=== PATIENT | female | born 1975 | race Hispanic/Latino ===

== ENCOUNTER 2018-09-01 11:22 | Emergency (ER) | payer OTHER ==
--- NOTE | 2018-09-01 12:03 | RAD REPORT ---
EXAM DESCRIPTION: RAD - Chest Single View - 09/01/2018 11:53 am CLINICAL HISTORY: Congestion;Cough Chest pain. COMPARISON: No comparisons FINDINGS: Portable technique limits examination quality. The lungs are grossly clear. The heart is normal in size. No displaced fractures. IMPRESSION: No acute intrathoracic process suspected.
--- NOTE | 2018-09-01 12:32 | EDPHYS ---
Physician Documentation [facility] Name: Marcia Storey Age: 43 yrs Sex: Female : 1975 Arrival Date: 09/01/2018 Time: 11:25 Bed 11 Private MD: ED Physician Waldo Rodriguez HPI: 09/01 12:29 This 43 yrs old Female presents to ER via Ambulatory with complaints of Cough, jr8 Congestion. 12:29 The patient or guardian reports cough, that is intermittent, described as mild, with jr8 productive sputum, that is yellow. Onset: The symptoms/episode began/occurred acutely, 2 day(s) ago. Severity of symptoms: At their worst the symptoms were mild, in the emergency department the symptoms are unchanged. Modifying factors: The symptoms are alleviated by nothing, the symptoms are aggravated by nothing. Associated signs and symptoms: Pertinent positives: rhinorrhea. The patient has not experienced similar symptoms in the past. The patient has not recently seen a physician. OPHTHALMIC ASST: 11:39 LMP N/A - control method iw Historical: - Allergies: 11:39 No Known Allergies; iw - Home Meds: 11:39 None [Active]; iw - PMHx: 11:39 None; iw - PSHx: 11:39 None; iw - Immunization history:: Adult Immunizations not up to date. - Social history:: Smoking status: Patient uses tobacco products, denies chronic smoking, but will smoke occasionally. - Ebola Screening: : Patient negative for fever greater than or equal to 101.5 degrees Fahrenheit, and additional compatible Ebola Virus Disease symptoms Patient denies exposure to infectious person Patient denies travel to an Ebola-affected area in the 21 days before illness onset No symptoms or risks identified at this time. ROS: 12:29 Eyes: Negative for injury, pain, redness, and discharge, Neck: Negative for injury, jr8 pain, and swelling, Cardiovascular: Negative for chest pain, palpitations, and edema, Abdomen/GI: Negative for abdominal pain, nausea, vomiting, diarrhea, and constipation, Back: Negative for injury and pain, MS/Extremity: Negative for injury and deformity, Skin: Negative for injury, rash, and discoloration, Neuro: Negative for headache, weakness, numbness, tingling, and seizure. 12:29 ENT: Positive for rhinorrhea, sinus congestion, sore throat, Negative for drainage from ear(s), ear pain. 12:29 Respiratory: Positive for cough, Negative for shortness of breath, sputum production, wheezing. Exam: 12:29 Eyes: Pupils equal round and reactive to light, extra-ocular motions intact. Lids and jr8 lashes normal. Conjunctiva and sclera are non-icteric and not injected. Cornea within normal limits. Periorbital areas with no swelling, redness, or edema. ENT: Nares patent. Clear rhinorrhea. Mild bilateral turbinate swelling, no septal abnormalities noted. Tympanic membranes are normal and external auditory canals are clear. Oropharynx with no redness, swelling, or masses, exudates, or evidence of obstruction, uvula midline. Mucous membranes moist. Neck: Trachea midline, no thyromegaly or masses palpated, and no cervical lymphadenopathy. Supple, full range of motion without nuchal rigidity, or vertebral point tenderness. No Meningismus. Cardiovascular: Regular rate and rhythm with a normal S1 and S2. No gallops, murmurs, or rubs. Normal PMI, no JVD. No pulse deficits. Respiratory: Lungs have equal breath sounds bilaterally, clear to auscultation and percussion. No rales, rhonchi or wheezes noted. No increased work of breathing, no retractions or nasal flaring. Abdomen/GI: Soft, non-tender, with normal bowel sounds. No distension or tympany. No guarding or rebound. No evidence of tenderness throughout. Back: No spinal tenderness. No costovertebral tenderness. Full range of motion. Skin: Warm, dry with normal turgor. Normal color with no rashes, no lesions, and no evidence of cellulitis. MS/ Extremity: Pulses equal, no cyanosis. Neurovascular intact. Full, normal range of motion. Neuro: Awake and alert, GCS 15, oriented to person, place, time, and situation. Cranial nerves II-XII grossly intact. Motor strength 5/5 in all extremities. Sensory grossly intact. Cerebellar exam normal. Normal gait. Vital Signs: 11:39 BP 122 / 87; Pulse 86; Resp 16; Temp 97.6(TE); Pulse Ox 95% on R/A; Weight 98.43 kg; iw Height 5 ft. 5 in. (165.10 cm); Pain 4/10; 11:39 Body Mass Index 36.11 (98.43 kg, 165.10 cm) iw MDM: 12:03 Patient medically screened. jr8 12:29 Data reviewed: vital signs, nurses notes, lab test result(s), radiologic studies, plain jr8 films, and as a result, I will discharge patient. Data interpreted: Pulse oximetry: on room air is 95 %. Interpretation: acceptable. Counseling: I had a detailed discussion with the patient and/or guardian regarding: the historical points, exam findings, and any diagnostic results supporting the discharge/admit diagnosis, lab results, radiology results, the need for outpatient follow up, a family practitioner, to return to the emergency department if symptoms worsen or persist or if there are any questions or concerns that arise at home. 09/01 11:41 Order name: Flu; Complete Time: 12:26 iw 09/01 11:41 Order name: CXR XRAY; Complete Time: 12:13 iw Administered Medications: No medications were administered Disposition: 09/02 07:06 Co-signature as Attending Physician, Waldo Rodriguez MD I agree with the assessment and rei plan of care. Disposition: 09/01/18 12:32 Discharged to Home. Impression: Acute upper respiratory infection, unspecified. - Condition is Stable. - Discharge Instructions: Upper Respiratory Infection, Adult. - Prescriptions for Prednisone 20 mg Oral Tablet - take 1 tablet by ORAL route once daily for 5 days; 5 tablet. Guaifenesin AC 10- 100 mg/5 mL Oral Liquid - take 10 milliliter by ORAL route every 4 hours As needed; 240 milliliter. Tessalon Perles 100 mg Oral Capsule - take 1 capsule by ORAL route every 8 hours As needed; 15 capsule. - Medication Reconciliation Form, Thank You Letter, Antibiotic Education, Prescription Opioid Use form. - Follow up: Private Physician; When: 5 - 6 days; Reason: Recheck today's complaints, Continuance of care, Re-evaluation by your physician. - Problem is new. - Symptoms have improved. Signatures: Dispatcher [employer] Waldo De MD MD cha Williams, Irene RN RN iw Teo Tomas PA PA jr8 Corrections: (The following items were deleted from the chart) 09/01 12:44 12:32 09/01/2018 12:32 Discharged to Home. Impression: Acute upper respiratory iw infection, unspecified. Condition is Stable. Forms are Medication Reconciliation Form, Thank You Letter, Antibiotic Education, Prescription Opioid Use. Follow up: Private Physician; When: 5 - 6 days; Reason: Recheck today's complaints, Continuance of care, Re-evaluation by your physician. Problem is new. Symptoms have improved. jr8
--- NOTE | 2018-09-01 12:32 | ER ---
Nurse's Notes [facility] Name: Marcia Storey Age: 43 yrs Sex: Female : 1975 Arrival Date: 09/01/2018 Time: 11:25 Bed 11 Private MD: Diagnosis: Acute upper respiratory infection, unspecified Presentation: 09/01 11:38 Presenting complaint: Patient states: cough, mucous, nasal congestion, no fever. iw Transition of care: patient was not received from another setting of care. Onset of symptoms was August 29, 2018. Risk Assessment: Do you want to hurt yourself or someone else? Patient reports no desire to harm self or others. Initial Sepsis Screen: Does the patient meet any 2 criteria? No. Patient's initial sepsis screen is negative. Does the patient have a suspected source of infection? No. Patient's initial sepsis screen is negative. Care prior to arrival: None. 11:38 Method Of Arrival: Ambulatory iw 11:38 Acuity: LYNNETTE 4 iw [employer]ACHUTE P[employer]ER: 11:39 LMP N/A - control method iw Historical: - Allergies: 11:39 No Known Allergies; iw - Home Meds: 11:39 None [Active]; iw - PMHx: 11:39 None; iw - PSHx: 11:39 None; iw - Immunization history:: Adult Immunizations not up to date. - Social history:: Smoking status: Patient uses tobacco products, denies chronic smoking, but will smoke occasionally. - Ebola Screening: : Patient negative for fever greater than or equal to 101.5 degrees Fahrenheit, and additional compatible Ebola Virus Disease symptoms Patient denies exposure to infectious person Patient denies travel to an Ebola-affected area in the 21 days before illness onset No symptoms or risks identified at this time. Screenin:16 Abuse screen: Denies threats or abuse. Denies injuries from another. Nutritional iw screening: No deficits noted. Tuberculosis screening: No symptoms or risk factors identified. Fall Risk None identified. Assessment: 12:16 General: Appears in no apparent distress. Behavior is calm, cooperative. Pain: Denies iw pain. Neuro: Level of Consciousness is awake, alert, obeys commands, Oriented to person, place, time, situation, Moves all extremities. Full function. Cardiovascular: Capillary refill < 3 seconds in bilateral fingers Patient's skin is warm and dry. Respiratory: Reports cough that is non-productive. GI: No signs and/or symptoms were reported involving the gastrointestinal system. EENT: Reports nasal congestion. Derm: Skin is intact, is healthy with good turgor. Vital Signs: 11:39 BP 122 / 87; Pulse 86; Resp 16; Temp 97.6(TE); Pulse Ox 95% on R/A; Weight 98.43 kg; iw Height 5 ft. 5 in. (165.10 cm); Pain 4/10; 11:39 Body Mass Index 36.11 (98.43 kg, 165.10 cm) iw ED Course: 11:25 Patient arrived in ED. iw 11:39 Triage completed. iw 11:39 Arm band placed on. iw 11:51 X-ray completed. Patient tolerated procedure well. Patient moved back from radiology. sg4 11:52 CXR XRAY In Process Unspecified. EDNC 12:03 Teo Tomas PA is PHCP. [facility] 12:03 Waldo Rodriguez MD is Attending Physician. [facility] 12:16 Vanessa Jones RN is Primary Nurse. iw 12:16 Patient has correct armband on for positive identification. iw 12:16 No provider procedures requiring assistance completed. Patient did not have IV access iw during this emergency room visit. Administered Medications: No medications were administered Outcome: 12:32 Discharge ordered by . jr8 12:43 Discharged to home ambulatory. iw 12:43 Condition: good 12:43 Discharge instructions given to patient, Instructed on discharge instructions, follow up and referral plans. medication usage, Demonstrated understanding of instructions, follow-up care, medications, Prescriptions given X 3. 12:44 Patient left the ED. iw Signatures: Dispatcher [employer] EDNC Vanessa Jones, RN RN Teo Tomas PA PA jrLashae Mccarthy [id number]
== END 2018-09-01 12:44 | disposition home or self-care (01) ==
LOC: ER 11:22
DX: J06.9 Acute upper respiratory infection, unspecified (principal); Z72.0 Tobacco use
CPT/HCPCS: 71045; 87804; 99283

== ENCOUNTER → 2021-04-08 | Day surgery (SDC) | payer OTHER ==
--- NOTE | 2021-04-08 10:35 | RAD REPORT ---
EXAM DESCRIPTION: Ultrasound-guided vacuum assisted left breast core biopsy CLINICAL HISTORY: Breast mass R92.8 COMPARISON: BREAST/AXILLA, COMPLETE dated 12/20/2016 FINDINGS: Informed consent was obtained and time-out was performed. The patient's left breast was prepped and draped in the usual sterile fashion. 1% lidocaine was used for local anesthetic purposes. Utilizing aseptic technique and ultrasound guidance, a 12 gauge vacuum assisted core biopsy device wa s used to obtain 2 core specimens through the mass of interest 9 o'clock position left breast. A post biopsy clip was then placed. All collected material was sent for cytology. Patient tolerated procedure well. IMPRESSION: Successful ultrasound guided vacuum assisted left breast mass biopsy.
== END ==
LOC: DS 09:30
PROVIDERS: ATTEND Clinical Nurse Specialist Women's Health
DX: R92.8 Other abnormal and inconclusive findings on diagnostic imaging of breast (principal)
CPT/HCPCS: 19083; 88305